=== PATIENT | male | born 1955 | race Caucasian/White ===

== ENCOUNTER 2019-04-02 20:52 | Emergency (ER) | payer SELFPAY ==
[~2019-04-02] VITALS: Ht 175.3 cm; Wt 86.7 kg
[~2019-04-02 20:52] MED LIST: BACL10TA4 PO
[2019-04-02 21:12] VITALS: BP 155/73
--- NOTE | 2019-04-02 21:22 | NUR ---
AMBULATES TO LOBBY WITH STEADY GAIT. URINE CUP PROVIDED.
--- NOTE | 2019-04-02 22:06 | NUR ---
PT AMBULATED TO BED 7.
--- NOTE | 2019-04-02 22:10 | NUR ---
63/M PRESENTED TO ED WITH C/O WATERY DIARRHEA X 8 DAYS. PT STATES HE CANNOT EAT WITHOUT HAVING DIARRHEA. HAS ONLY BEEN DRINKING WATER. REPORTS FEVERS ESPECIALLY AT NIGHT- HIGHEST TEMP 103 AT HOME. DENIES NV. STATES HE HAS DRY COUGH X 8 DAYS WITH INTERMITTENT DIZZINESS. HAS TAKEN IMMODIUM AND TYLENOL WITH NO RELIEF. ACTIVE BOWEL SOUNDS PRESENT. NO PAIN REPORTED. EVEN UNLABORED BREATHING. CLEAR BILATERAL LUNG SOUNDS HEAD. CONNECTED TO MONITOR. VSS. AT BEDSIDE PMH-- SCIATICA PAIN RX-- DENIES
[2019-04-02] MEDS ORDERED: NACL 0.9% 1,000 ML IV SCH (22:25)
[2019-04-02] MEDS ORDERED: KETOROLAC 30 MG/ML VIAL IVP ONE (22:25)
[2019-04-02 22:51] LABS: HEMATOCRIT 41.9 % (36-52); HEMOGLOBIN 14.2 g/dL (12.0-18.0); MEAN CORPUSCULAR HEMOGLOBIN 31 pg (27-31); MEAN CORPUSCULAR HGB CONC 34 g/dL (33-37); PLATELET COUNT (AUTO) 225 K/uL (140-450); RED BLOOD CELL COUNT(AUTO) 4.65 MIL/uL (4.20-6.10); RED CELL DISTRIBUTION WIDTH 13.6 % (11.6-13.7)
[2019-04-02 23:09] LABS: ANION GAP 15.9 (8-16); CARBON DIOXIDE 25.6 mmol/L (21-32); POTASSIUM 3.5 mmol/L (3.5-5.1)
[2019-04-02 23:10] LABS: CREATININE 1.1 mg/dL (0.7-1.3)
[2019-04-02 23:14] LABS: ALBUMIN 3.2 g/dL (3.4-5.0)
[2019-04-02 23:23] LABS: LYMPHOCYTES % (MANUAL) 23 % (20-46); MONOCYTES % (MANUAL) 13 % (5-12)
--- NOTE | 2019-04-02 23:39 | NUR ---
PT SITTING UP IN BED. STATES HE FEELS OKAY. NO PAIN REPORTED AT THIS TIME. AT BEDSIDE.
[2019-04-02 23:52] VITALS: BP 145/70
--- NOTE | 2019-04-02 23:52 | NUR ---
Patient discharged with v/s stable. Written and verbal after care instructions given and explained. Patient alert, oriented and verbalized understanding of instructions. Ambulatory with steady gait. All questions addressed prior to discharge. ID band removed. Patient advised to follow up with PMD. Rx of CIPRO, TRAMADOL, LOMOTIL given. Patient educated on indication of medication including possible reaction and side effects. Opportunity to ask questions provided and answered.
== END 2019-04-02 23:52 | disposition home or self-care (01) ==
LOC: MED 20:52
DX: A09 Infectious gastroenteritis and colitis, unspecified (principal); Z79.899 Other long term (current) drug therapy
CPT/HCPCS: 74022; 80053; 84484; 85025; 87040; 93005; 96361; 96374; 99284; J1885; J7030

== ENCOUNTER 2020-05-05 08:45 | Emergency (ER) | payer MEDICAID, OTHER ==
[~2020-05-05] VITALS: Ht 170.2 cm; Wt 81.6 kg
[2020-05-05 08:57] VITALS: BP 165/87
--- NOTE | 2020-05-05 09:19 | NUR ---
DR. CHEEMA EVALUATING PT IN TENT.
--- NOTE | 2020-05-05 09:42 | NUR ---
PT SEEN AND D/C BY DR. CHEEMA. NO NURSING CARE PROVIDED.
--- NOTE | 2020-05-05 09:42 | NUR ---
Patient discharged with v/s stable. Written and verbal after care instructions given and explained. Patient alert, oriented and verbalized understanding of instructions. Ambulatory with steady gait. All questions addressed prior to discharge. ID band removed. Patient advised to follow up with PMD. Rx of BENADRYL, MOTRIN, NORCO, PREDNISONE given. Patient educated on indication of medication including possible reaction and side effects. Opportunity to ask questions provided and answered.
[2020-05-05 09:44] VITALS: BP 165/87
== END 2020-05-05 09:42 | disposition home or self-care (01) ==
LOC: MED 08:45
DX: R21 Rash and other nonspecific skin eruption (principal); R51.9 Headache, unspecified; Z79.899 Other long term (current) drug therapy
CPT/HCPCS: 99283

== ENCOUNTER 2020-05-09 12:09 | Emergency (ER) | payer OTHER, SELFPAY ==
[~2020-05-09] VITALS: Ht 170.2 cm; Wt 79.4 kg
--- NOTE | 2020-05-09 12:15 | NUR ---
PATIENT IN THE TENT
[2020-05-09 12:19] VITALS: BP 156/86
--- NOTE | 2020-05-09 12:22 | NUR ---
triaged and waiting in tent.
--- NOTE | 2020-05-09 12:42 | NUR ---
PATIENT ABMULATED TO ER BED 10 Addendum: 05/09/20 at 1242 by [facility] PATIENT AMBULATED TO ER BED 09
--- NOTE | 2020-05-09 12:50 | NUR ---
JOSEE SWAB COLLECTED AND SENT TO LAB.
--- NOTE | 2020-05-09 12:54 | NUR ---
RT AT BEDSIDE FOR ABG.
[2020-05-09 13:29] LABS: BASOPHILS # (AUTO) 0.1 K/uL (0.00-0.22); BASOPHILS % (AUTO) 0.7 % (0.0-2.0); EOSINOPHILS % (AUTO) 0.2 % (0.0-4.0); HEMATOCRIT 45.4 % (36-52); HEMOGLOBIN 14.9 g/dL (12.0-18.0); LYMPHOCYTES % (AUTO) 26.7 % (20.5-51.1); MEAN CORPUSCULAR HEMOGLOBIN 30 pg (27-31); MEAN CORPUSCULAR HGB CONC 33 g/dL (33-37); MEAN CORPUSCULAR VOLUME 91.9 fL (80-94); MONOCYTES # (AUTO) 0.9 K/uL (0.8-1.0); MONOCYTES % (AUTO) 7.6 % (1.7-9.3); NEUTROPHILS # (AUTO) 7.3 K/uL (1.8-7.7); NEUTROPHILS % (AUTO) 64.8 % (42.2-75.2); PLATELET COUNT (AUTO) 358 K/uL (140-450); RED BLOOD CELL COUNT(AUTO) 4.94 MIL/uL (4.20-6.10); RED CELL DISTRIBUTION WIDTH 13.6 % (11.6-13.7); WHITE BLOOD COUNT (AUTO) 11.3 K/uL (4.8-10.8)
[2020-05-09 13:46] LABS: ALBUMIN 3.6 g/dL (3.4-5.0); ANION GAP 13.1 (8-16); CARBON DIOXIDE 28.5 mmol/L (21-32); CREATININE 1.1 mg/dL (0.6-1.3); POTASSIUM 3.6 mmol/L (3.5-5.1); TOTAL BILIRUBIN 0.5 mg/dL (0.0-1.0)
--- NOTE | 2020-05-09 13:47 | NUR ---
Pt ambulated with [facility] for CT scan.
--- NOTE | 2020-05-09 13:54 | NUR ---
Pt ambulated to room from CT scan.
[2020-05-09 15:31] VITALS: BP 134/76
--- NOTE | 2020-05-09 15:31 | NUR ---
Patient discharged with v/s stable. Written and verbal after care instructions given and explained. Patient verbalized understanding. Ambulatory with steady gait. All questions addressed prior to discharge. Advised to follow up with PMD.
== END 2020-05-09 15:31 | disposition home or self-care (01) ==
LOC: MED 12:09
DX: J45.909 Unspecified asthma, uncomplicated (principal); Z79.899 Other long term (current) drug therapy
CPT/HCPCS: 36415; 71250; 80053; 85025; 99284